=== PATIENT | female | born 1980 | race American Indian/Alaskan Native ===

== ENCOUNTER 2018-12-27 21:06 | Emergency (ER) | payer OTHER ==
--- NOTE | 2018-12-27 21:28 | Emergency Department Report ---
Blank Doc - Documentation Documentation: 38 y o female presents with pelvic pain x 3 days states worsening today, admits, pressure feeling when urinates, vag bleed vomitting began in triage denies f/d LMP: 12/03/18 ua/upt ACC eval
[2018-12-27 22:07] LABS: Basophils % (Auto) 0.5 % (0.0-1.8); Eosinophils # (Auto) 0.1 K/mm3 (0.0-0.4); Eosinophils % (Auto) 2.1 % (0.0-4.3); Hematocrit 35.2 % (30.3-42.9); Hemoglobin 12.2 gm/dl (10.1-14.3); Lymphocytes # (Auto) 1.4 K/mm3 (1.2-5.4); Lymphocytes % (Auto) 20.6 % (13.4-35.0); Mean Corpuscular HGB Conc 35 % (30-34); Mean Corpuscular Volume 89 fl (79-97); Monocytes # (Auto) 0.4 K/mm3 (0.0-0.8); Monocytes % (Auto) 6.3 % (0.0-7.3); Platelet Count 242 K/mm3 (140-440); Red Blood Count 3.96 M/mm3 (3.65-5.03)
[2018-12-27 22:09] LABS: HCG Qualitative,Urine Positive (Negative)
[2018-12-27 22:15] LABS: Bilirubin,Urine NEG (Negative); Blood,Urine LG (Negative); Color,Urine Yellow (Yellow); Mucus,Urine 1+ /HPF
[2018-12-27 22:22] LABS: Alanine Aminotransferase 15 units/L (7-56); Albumin 4.1 g/dL (3.9-5); BUN/Creatinine Ratio 20; Blood Urea Nitrogen 14 mg/dL (7-17); Hemolysis Index 24
[2018-12-27 22:29] LABS: RBC,Urine > 182.0 /HPF (0.0-6.0)
[2018-12-27] MEDS ORDERED: REGLAN IV ONE (23:08)
[2018-12-27] MEDS ORDERED: MORPHINE IV ONE (23:08)
[2018-12-27] MEDS ORDERED: NACL 0.9% 1000 ML 1,000 ML IV ONE (23:09)
--- NOTE | 2018-12-28 00:58 | Ultrasound Report ---
PROCEDURE: US OB TRANSVAGINAL TECHNIQUE: Real-time transvaginal sonography of the uterus, placenta, amniotic fluid, adnexa, and fe tus was performed with image documentation. Measurements were obtained to determine age/size. M -mode Doppler was used to document heartbeat. ADDITIONAL GESTATION: None. HISTORY: PELVIC PAIN COMPARISONS: December 27, 2018 . FINDINGS: There is no evidence of intrauterine gestation. Uterus measures 9.5 x 5.6 x 6.5 cm. Right ovary measures 2.9 x 1.7 x 2.1 cm. There is a 2.4 cm complex right adnexal mass. This could be an involuting cyst. There is no abnormal vascularity to suggest ectopic but correlation wit h serial beta hCG measurements may be indicated. Left ovary measures 4.3 x 2.1 x 2.1 cm. There is no free pelvic fluid. IMPRESSION: There is no evidence of intrauterine gestation. There is a 2.4 cm complex right adnexal mass. This could be an involuting cyst. There is no abnormal vascularity to suggest ectopic but correlation with serial beta hCG measurements may be ind icated. There is no free pelvic fluid. This document is electronically signed by Brett Francisco MD., December 28 2018 12:56:38 AM ET
--- NOTE | 2018-12-28 01:09 | Emergency Department Report ---
ED Abdominal Pain HPI - General Chief Complaint: Abdominal Pain Stated Complaint: ABD PAIN Time Seen by Provider: 12/27/18 21:23 Source: patient Mode of arrival: Ambulatory Limitations: No Limitations - History of Present Illness Initial Comments: Patient is a A1 38-year-old, -K[place] female with no past medical history, and was gestational period is unknown presents to the ED with complaint of acute onset persistent heavy vaginal bleeding for the last 1 week with severe pelvic pain. Patient states that initially the bleeding was mild and spotting but in the last 3 days the bleeding has been heavy and they pelvic pain has also been very severe. Patient states that she has not been able to walk because of severe pain in the last 12 hours. Patient denies nausea, vomiting, diarrhea, dysuria, urinary frequency and urgency, shortness of breath, chest pain, dizziness, headache, or vaginal discharge, fever and chills. MD Complaint: abdominal pain, other (heavy vaginal bleeding) -: Sudden, week(s) (1) Location: suprapubic Radiation: suprapubic Migration to: suprapubic Severity: severe Severity scale (0 -10): 10 Quality: cramping, aching, sharp Consistency: constant Improves With: nothing Worsens With: nothing Associated Symptoms: nausea. denies: vomiting, diarrhea, fever, chills, constipation, dysuria, hematemesis, hematochezia, melena, hematuria, anorexia, syncope, other - Related Data LMP (females 10-50): 3 weeks Previous Rx's Medication Instructions Recorded Last Taken Type Acetaminophen/Codeine [Tylenol 1 - 2 tab PO Q6H PRN #20 tab 12/28/18 Unknown Rx /Codeine # 3 tab] Promethazine [Phenergan] 25 mg PO Q6HR PRN #24 tab 12/28/18 Unknown Rx Allergies Allergy/AdvReac Type Severity Reaction Status Date / Time latex Allergy Hives Verified 12/27/18 21:15 ED Review of Systems ROS: Stated complaint: ABD PAIN Other details as noted in HPI Constitutional: denies: chills, fever Eyes: denies: eye pain, eye discharge, vision change ENT: denies: ear pain, throat pain Respiratory: denies: cough, shortness of breath, wheezing Cardiovascular: denies: chest pain, palpitations, dyspnea on exertion, syncope, paroxysmal nocturnal dyspnea Endocrine: no symptoms reported Gastrointestinal: abdominal pain (diffuse lower), nausea. denies: diarrhea, constipation, hematemesis, melena, hematochezia Genitourinary: abnormal menses, other (Heavy vaginal bleeding). denies: urgency, dysuria, discharge Musculoskeletal: denies: back pain, joint swelling, arthralgia Skin: denies: rash, lesions Neurological: denies: headache, weakness, paresthesias Psychiatric: denies: anxiety, depression Hematological/Lymphatic: denies: easy bleeding, easy bruising ED Past Medical Hx - Past Medical History Previous Medical History?: No - Surgical History Past Surgical History?: No - Social History Smoking Status: Never Smoker Substance Use Type: None - Medications Home Medications: Home Medications Medication Instructions Recorded Confirmed Last Taken Type Acetaminophen/Codeine [Tylenol 1 - 2 tab PO Q6H PRN #20 tab 12/28/18 Unknown Rx /Codeine # 3 tab] Promethazine [Phenergan] 25 mg PO Q6HR PRN #24 tab 12/28/18 Unknown Rx ED Physical Exam - General Limitations: No Limitations General appearance: alert, in no apparent distress - Head Head exam: Present: atraumatic, normocephalic, normal inspection - Eye Eye exam: Present: normal appearance, PERRL, EOMI - ENT ENT exam: Present: normal exam, normal orophraynx, mucous membranes moist, TM's normal bilaterally, normal external ear exam - Neck Neck exam: Present: normal inspection, full ROM. Absent: tenderness, meningi smus, lymphadenopathy - Respiratory Respiratory exam: Present: normal lung sounds bilaterally. Absent: respiratory distress, wheezes, chest wall tenderness, accessory muscle use, decreased breath sounds - Cardiovascular Cardiovascular Exam: Present: regular rate, normal rhythm, normal heart sounds. Absent: systolic murmur, diastolic murmur, rubs, gallop - GI/Abdominal GI/Abdominal exam: Present: soft, tenderness (Diffuse lower abdomen), guarding, rebound, normal bowel sounds. Absent: hyperactive bowel sounds, hypoactive bowel sounds, organomegaly, bruit, hernia - Rectal Rectal exam: Present: deferred - Extremities Exam Extremities exam: Present: normal inspection, full ROM, normal capillary refill - Back Exam Back exam: Present: normal inspection, full ROM. Absent: tenderness, CVA tenderness (R), CVA tenderness (L), muscle spasm, paraspinal tenderness, vertebral tenderness - Neurological Exam Neurological exam: Present: alert, oriented X3, CN II-XII intact, normal gait, reflexes normal - Psychiatric Psychiatric exam: Present: normal affect, normal mood - Skin Skin exam: Present: warm, dry, intact, normal color. Absent: rash ED Course Vital Signs 12/27/18 12/28/18 12/28/18 21:24 00:36 01:00 Temperature 98.8 F Pulse Rate 89 96 H 75 Respiratory 20 16 Rate Blood Pressure 117/81 121/71 O2 Sat by Pulse 100 100 Oximetry 12/28/18 12/28/18 01:30 02:00 Temperature Pulse Rate 77 81 Respiratory 17 16 Rate Blood Pressure 117/77 114/74 O2 Sat by Pulse 97 Oximetry - Reevaluation(s) Reevaluation #1: 12/28/18 01:10 Patient is alert and oriented 3 and is not in any distress with stable vital signs. Lab test results are reviewed and shows hCG Quant of 2924 and urinalysis shows large amount of blood in the urine. There is also a mild hyponatremia of 136 mmol/L. Patient was treated for pain in the ED and transvaginal and complete pelvic ultrasound tests ordered. Patient also received normal saline 1 L IV bolus in the ED. Patient was also placed on teletypesetter monitor. 12/28/18 01:12 12/28/18 04:55 Reevaluation #2: 12/28/18 00:40 The transvaginal ultrasound shows no evidence of intrauterine gestation but it shows a 2.4 cm complex right adnexal mass. According to the radiologist, this could be an involuting cyst. There is also no abnormal vascularity to suggest ectopic based on the imaging and it is suggested that correlation with serial beta hCG measurement be made as indicated. There was no pelvic fluid seen in in this imaging. The complete pelvic ultrasound shows no evidence of an IUP, and a 2.4 cm right complex adnexal area is again identified and an ectopic cannot be excluded based on these findings. I discussed these findings with the ED attending physician Dr. Gross will also reviewed these reports. Dr. Gross advised that they [employer] physician it professional Dr. Kaur be paged for further direction and plan of care. I paged and discussed these findings with Dr. St. Darian the [employer] physician it professional who advised that given the fact that the patient has had only one hCG Quant results, which is 2924, a serial beta hCG be repeated within 48 hours either in her office or the patient returns to the ED for the same in 48 hours, and based on these findings the patient should be treated appropriately. She suggested the patient be treated for pain, and a Rhogam injection given in the ED based on the patient's past history of miscarriage about a year ago due to negative Rhesus factor in her blood type. On reevaluation, patient is alert and oriented 3 and is not in any distress, and is hemodynamically stable. Patient was discharged home on pain medications and advised to return to the ED in 48 hours for serial hCG Quant studies. Patient and her significant other verbalized understanding and promise to return to the ED for the same. ED Medical Decision Making - Lab Data Result diagrams: 12/27/18 21:41 12/27/18 21:41 - Radiology Data Radiology results: report reviewed, image reviewed The transvaginal ultrasound shows no evidence of intrauterine gestation but it shows a 2.4 cm complex right adnexal mass. According to the radiologist, this could be an involuting cyst. There is also no abnormal vascularity to suggest ectopic based on the imaging and it is suggested that correlation with serial beta hCG measurement be made as indicated. There was no pelvic fluid seen in in this imaging. The complete pelvic ultrasound shows no evidence of an IUP, and a 2.4 cm right c omplex adnexal area is again identified and an ectopic cannot be excluded based on these findings. - Medical Decision Making Patient is alert and oriented 3 and is not in any distress with stable vital signs. Lab test results are reviewed and shows hCG Quant of 2924 and urinalysis shows large amount of blood in the urine. There is also a mild hyponatremia of 136 mmol/L. Patient was treated for pain in the ED and transvaginal and complete pelvic ultrasound tests ordered. Patient also received normal saline 1 L IV bolus in the ED. Patient was also placed on teletypesetter monitor. The transvaginal ultrasound shows no evidence of intrauterine gestation but it shows a 2.4 cm complex right adnexal mass. According to the radiologist, this could be an involuting cyst. There is also no abnormal vascularity to suggest ectopic based on the imaging and it is suggested that correlation with serial beta hCG measurement be made as indicated. There was no pelvic fluid seen in in this imaging. The complete pelvic ultrasound shows no evidence of an IUP, and a 2.4 cm right complex adnexal area is again identified and an ectopic cannot be ex cluded based on these findings. I discussed these findings with the ED attending physician Dr. Gross will also reviewed these reports. Dr. Gross advised that they [employer] physician it professional Dr. Kaur be paged for further direction and plan of care. I paged and discussed these findings with Dr. Kaur the [employer] physician it professional who advised that given the fact that the patient has had only one hCG Quant results, which is 2924, a serial beta hCG be repeated within 48 hours either in her office or the patient returns to the ED for the same in 48 hours, and based on these findings the patient should be treated appropriately. She suggested the patient be treated for pain, and a Rhogam injection given in the ED based on the patient's past history of miscarriage about a year ago due to negative Rhesus factor in her blood type. On reevaluation, patient is alert and oriented 3 and is not in any distress, and is hemodynamically stable. Patient was discharged home on pain medications and advised to return to the ED in 48 hours for serial hCG Quant studies. Patient and her significant other verbalized understanding and promise to return to the ED for the same. - Differential Diagnosis Acute pelvic pain; Vaginal bleeding; Threatened , ectopic Critical care attestation.: If time is entered above; I have spent that time in minutes in the direct care of this critically ill patient, excluding procedure time. ED Disposition Clinical Impression: Acute bilateral lower abdominal pain, Vaginal bleeding affecting early , Threatened miscarriage in early Ectopic without intrauterine Qualifiers: Location of ectopic : unspecified location Qualified Code(s): O00.90 - Unspecified ectopic without intrauterine Disposition: - TO HOME OR SELFCARE Is pt being admited?: No Does the pt Need Aspirin: No Condition: Stable Instructions: Abdominal Pain (ED), Ectopic (ED), Threatened Miscarria ge (ED) Additional Instructions: Take medications for pain with food, drink plenty of fluids and follow up with Dr. Kaur as advised, or return to the ED on SaturdayDecember 29 for further evaluation and testing. Return to the ED immediately if symptoms get worse. Prescriptions: Promethazine [Phenergan] 25 mg PO Q6HR PRN #24 tab PRN Reason: Nausea Acetaminophen/Codeine [Tylenol /Codeine # 3 tab] 1 - 2 tab PO Q6H PRN #20 tab PRN Reason: Pain , Severe (7-10) Referrals: KALINA GALARZA MD [Staff Physician] - 24 Hours Time of Disposition: 05:20 Print Language: YAKUT
--- NOTE | 2018-12-28 01:11 | Ultrasound Report ---
PROCEDURE: US OB <= 14 WEEKS FETUS TECHNIQUE: Transabdominal imaging was obtained the pelvis HISTORY: PELVIC PAIN, HEMORRHAGE; +VE PREG COMPARISONS: Transvaginal exam of 12/28/2018 FINDINGS: The uterus measures 9.5 x 5.6 x 6.5 cm. There is no evidence of an IUP at this time. There is a 4.1 c m fibroid within the uterus. The left ovary is normal in size contour and echotexture measuring 4.3 x 2.1 x 2.1 cm. The right ovary measures 2.9 x 1.7 x 2.1 cm. There is a 2.4 cm complex right adnexal mass. A discrete gestational sac and embryo within is not seen. Occult ectopic cannot entirely be ruled out . There is minimal free fluid in the cul-de-sac.. IMPRESSION: No evidence of an intrauterine at this time. 2.4 cm right complex adnexal area. An ectopic cannot be excluded. Correlation with serial b eta hCG levels levels and clinical exam needed. This document is electronically signed by Boy Louis MD., December 28 2018 01:09:43 AM ET
[2018-12-28] MEDS ORDERED: MORPHINE IV ONE (02:19)
[2018-12-28] MEDS ORDERED: LACTATED RINGERS 1,000 ML IV ONE (02:19)
[2018-12-28] MEDS ORDERED: ZOFRAN IV ONE (02:20)
[2018-12-28 05:38] VITALS: BP 108/65
== END 2018-12-28 05:45 | disposition home or self-care (01) ==
LOC: ED 21:06
DX: O20.0 Threatened abortion (principal); Z3A.01 Less than 8 weeks gestation of pregnancy; Z91.040 Latex allergy status
CPT/HCPCS: 36415; 76801; 76817; 80053; 81001; 81025; 84702; 85025; 86850; 86900; 86901; 96372; 96374; 96375; 96376; 99284; J2270; J2405; J2765; J2790; J7030; J7120